=== PATIENT | male | born 1955 | race Caucasian/White ===

== ENCOUNTER 2019-08-22 14:42 | Observation (INO) | payer OTHER ==
[~2019-08-22] VITALS: Ht 175.3 cm; Wt 81.2 kg
[~2019-08-22 14:42] MED LIST: ATOR80 PO; Acetaminophen-1 EAC1 PO; Aspir 8181 MG PO; BREO ELLIPTA 11 EACH IH; CLON1 PO; ERGO400 PO; Flurbiprofen100 MG; Isosorbide Mono30 MG PO; LAMO100 PO; Lithium Carbon150 MG PO; METO25ER PO; Omeprazole20 M1 PO; PENVK500 PO; Vitamin D2000 UNIT PO
[2019-08-22] MEDS ORDERED: Lithium Carbon150 MG PO ×2 (15:03→16:35)
[2019-08-22 15:20] LABS: BASOPHILS ABSOLUTE AUTO 0.07 K/mm3 (0.00-0.23); BASOPHILS PERCENT AUTO 1 % (0-2); EOSINOPHILS ABSOLUTE AUTO 0.29 K/mm3 (0.00-0.68); EOSINOPHILS PERCENT AUTO 3 % (0-6); Hematocrit 42.3 % (37.0-53.0); Hemoglobin 13.5 g/dL (13.5-17.5); IMMATURE GRAN ABSOLUTE AUTO 0.04 K/mm3 (0.00-0.10); IMMATURE GRAN PERCENT AUTO 0 % (0-1); LYMPHOCYTES ABSOLUTE AUTO 2.84 K/mm3 (0.84-5.20); LYMPHOCYTES PERCENT AUTO 31 % (21-46); MONOCYTES ABSOLUTE AUTO 0.57 K/mm3 (0.16-1.47); MONOCYTES PERCENT AUTO 6 % (4-13); Mean Corpuscular HGB 32.4 pg (26.0-34.0); Mean Corpuscular HGB Conc 31.9 g/dL (31.5-36.5); Mean Corpuscular Volume 101 fL (80-100); Mean Platelet Volume 10.2 fL (9.1-12.4); NEUTROPHILS ABSOLUTE AUTO 5.29 K/mm3 (1.96-9.15); NEUTROPHILS PERCENT AUTO 58 % (41-73); Platelet Count 271 K/mm3 (150-400); RDW Coefficient Variation 12.9 % (11.7-14.2); RDW Standard Deviation 48.2 fL (35.1-46.3); Red Blood Cell Count 4.17 M/mm3 (4.30-5.90)
[2019-08-22 15:30] LABS: Troponin I <0.015 ng/mL (0.000-0.040)
[2019-08-22 15:38] LABS: Alanine Aminotransfer (ALT/SGP 47 U/L (12-78); Albumin, Blood 3.5 g/dL (3.4-5.0); Albumin/Globulin Ratio 0.8 (0.8-1.8); Alk Phos 78 U/L (50-136); Anion Gap 7 mmol/L (6-16); Aspartate Aminotrans (AST/SGOT 34 U/L (12-37); Bilirubin, Total 0.3 mg/dL (0.1-1.0); Blood Urea Nitrogen 16 mg/dL (8-24); Bun/Creatinine Ratio 13.6 (12.0-20.0); CO2, Blood 27 mmol/L (21-32); Calcium, Blood 8.8 mg/dL (8.5-10.1); Chloride, Blood 106 mmol/L (98-108); Creatinine, Blood 1.18 mg/dL (0.60-1.20); Globulin, Blood 4.5 g/dL (2.2-4.0); Glomerular Filtration Rate >60 (60-); Glucose, Blood 119 mg/dL (70-99); Potassium, Blood 4.1 mmol/L (3.5-5.5); Sodium, Blood 140 mmol/L (136-145)
[2019-08-22] MEDS ORDERED: CLONAZEPAM1 MG PO (16:39)
[2019-08-22 16:45] LABS: Lithium 0.42 mmol/L (0.60-1.20)
[2019-08-22] MEDS ORDERED: BREO ELLIPTA 11 EACH INH (16:58)
[2019-08-22] MEDS ORDERED: METO25ER PO (16:59)
--- NOTE | 2019-08-22 21:03 | NUR ---
EAN IS A NEW ADMIT FROM THE ED. AXOX 4 AND SBA TRANSFER FROM [facility] TO BED. DENIES CHEST PAIN, N/V, AND SOB. DENIES SYNCOPE EVENTS AT HOSPITAL. TELEMETRY PLACED AND NSR 70. TROPONIN NEGATIVE AND ANOTHER DRAW IN PROCESS. NEED TOXICOLOGY SCREEN. PATIENT ORIENTED TO ROOM AND CALL LIGHT SYSTEM. CARDIAC DIET AND FOOD PROVIDED AND WARM BLANKET. REPORTS SMOKES CANNABIS 2 X WEEK AND SMOKED TODAY BEFORE SYNCOPE EVENT. CALL LIGHT IN REACH. BED IN LOWEST POSITION. WILL CONTINUE TO MONITOR.
--- NOTE | 2019-08-22 21:10 | NUR ---
CARDIOLOGY CONSULT CALLED INTO ANSWERING SERVICE. SERVICE REPORTS DR KUMAR MANAGER AUTOMOTIVE ([facility]).
--- NOTE | 2019-08-22 22:30 | NUR ---
UA COLLECTED FOR TOXICOLOGY SCREEN. SENT TO LAB.
[2019-08-22 22:53] LABS: U Amphetamine Screen Not Detected; U Barbituate Screen Not Detected; U Benzodiazapine Screen Not Detected; U Buprenorphine Screen Not Detected; U Cannabinoids Screen DETECTED; U Cocaine Screen Not Detected; U Methadone Screen Not Detected; U Methamphetamine Screen Not Detected; U Opiates Screen Not Detected; U Oxycodone Screen Not Detected; U Phencyclidine Screen Not Detected; U Propoxyphene Screen Not Detected
--- NOTE | 2019-08-23 04:31 | NUR ---
SHIFT SUMMARY PATIENT HAD NO ACUTE CHANGES OBSERVED THIS SHIFT. AXO X4 AND SBA TO BR. USES URINAL AT BEDSIDE. UA TOXICOLOGY SCREEN ORDER SENT TO LAB. CARDIOLOGY CONSULT CALLED IN. VSS/AFEBRILE. DENIES CHEST PAIN, SYNCOPE EPISODE, AND N/V. PIV REMAINS INTACT. FIELD INSURANCE SALES MANAGER REPORTS NSR 70. TROPONINS NEGATIVE X TWO THIS SHIFT. REPORTS SMOKES CANNABIS TWICE A WEEK AND CEDS 1-1.5 PK/WEEK. HX BIPOLAR, COPD, PTSD, AND REPORTS N/T IN HANDS LAST FEW MONTHS ALTERNATING HANDS. CALL LIGHT IN REACH. BED IN LOWEST POSITION. WILL CONTINUE TO MONITOR UNTIL DAY SHIFT NURSE ASSUMES CARE.
[2019-08-23 08:26] LABS: Free Thyroxine 0.72 ng/dL (0.70-1.60)
[2019-08-23 08:28] LABS: Triiodothyronine, Free 1.81 pg/mL (2.18-3.98)
[2019-08-23] MEDS ORDERED: LEVSOD25 PO (14:07)
--- NOTE | 2019-08-23 14:45 | NUR ---
PATIENT DISCHARGE: PATIENT DISCHARGED TO HOME THIS SHIFT. MEDICATION RECONCILIATION COMPELTED; MED LIST FAXED TO [facility]. DISCHARGE EDUCATION COMPLETED WITH PATIENT AND FAMILY. PATIENT INDEPENDENT IN ROOM; PATIENT DECLINED WHEELCHAIR TO EXIT; PATIENT DEPARTED MEDICAL FLOOR AT 1440. PATIENT DEPARTED [facility] VIA PRIVATE AUTO.
== END 2019-08-23 14:42 | disposition home or self-care (01) ==
LOC: ER 14:42 → MEDS 14:43
PROVIDERS: Emergency Medicine; Internal Medicine; ADMIT Family Medicine
DX: R55 Syncope and collapse (principal); R10.11 Right upper quadrant pain; F43.12 Post-traumatic stress disorder, chronic; F31.9 Bipolar disorder, unspecified; K21.9 Gastro-esophageal reflux disease without esophagitis; J44.9 Chronic obstructive pulmonary disease, unspecified; R00.1 Bradycardia, unspecified; R79.1 Abnormal coagulation profile; E78.00 Pure hypercholesterolemia, unspecified; F41.9 Anxiety disorder, unspecified; F17.210 Nicotine dependence, cigarettes, uncomplicated; I45.10 Unspecified right bundle-branch block; E03.8 Other specified hypothyroidism; Z88.5 Allergy status to narcotic agent; Z79.51 Long term (current) use of inhaled steroids; Z79.82 Long term (current) use of aspirin; Z79.899 Other long term (current) drug therapy
CPT/HCPCS: 36415; 71045; 71275; 76705; 80053; 80178; 82947; 83690; 84439; 84443; 84481; 84484; 85025; 93005; 93010; 93306; 93880; 96360; 99285-25; G0378; J7030; Q9967

== ENCOUNTER → 2019-10-29 | Outpatient (CLI) | payer OTHER ==
[~2019-10-29] MED LIST changes: +BREO ELLIPTA 11 EACH INH; +CLONAZEPAM1 MG PO; +LEVSOD25 PO
== END | disposition home or self-care (01) ==
LOC: PLD 07:23 → LAB SHORT 07:23
DX: D22.5 Melanocytic nevi of trunk (principal)
CPT/HCPCS: 88305

== ENCOUNTER 2021-02-04 15:36 | Emergency (ER) | payer OTHER ==
[~2021-02-04] VITALS: Ht 175.3 cm; Wt 81.7 kg
[2021-02-04 16:33] LABS: BASOPHILS ABSOLUTE AUTO 0.05 K/mm3 (0.00-0.23); BASOPHILS PERCENT AUTO 1 % (0-2); EOSINOPHILS ABSOLUTE AUTO 0.16 K/mm3 (0.00-0.68); EOSINOPHILS PERCENT AUTO 2 % (0-6); Hematocrit 35.2 % (37.0-53.0); Hemoglobin 11.4 g/dL (13.5-17.5); IMMATURE GRAN ABSOLUTE AUTO 0.03 K/mm3 (0.00-0.10); IMMATURE GRAN PERCENT AUTO 0 % (0-1); LYMPHOCYTES ABSOLUTE AUTO 1.62 K/mm3 (0.84-5.20); LYMPHOCYTES PERCENT AUTO 21 % (21-46); MONOCYTES PERCENT AUTO 9 % (4-13); Mean Corpuscular HGB 32.5 pg (26.0-34.0); Mean Corpuscular HGB Conc 32.4 g/dL (31.5-36.5); Mean Corpuscular Volume 100 fL (80-100); Mean Platelet Volume 10.6 fL (9.1-12.4); NEUTROPHILS PERCENT AUTO 67 % (41-73); Platelet Count 262 K/mm3 (150-400); RDW Coefficient Variation 13.6 % (11.7-14.2); RDW Standard Deviation 50.1 fL (35.1-46.3); Red Blood Cell Count 3.51 M/mm3 (4.30-5.90); White Blood Cell Count 7.76 K/mm3 (4.00-11.30)
[2021-02-04 16:49] LABS: Alanine Aminotransfer (ALT/SGP 20 U/L (12-78); Albumin, Blood 3.1 g/dL (3.4-5.0); Albumin/Globulin Ratio 0.8 (0.8-1.8); Alk Phos 78 U/L (50-136); Anion Gap 3 mmol/L (6-16); Aspartate Aminotrans (AST/SGOT 12 U/L (12-37); Bilirubin, Total 0.2 mg/dL (0.1-1.0); Blood Urea Nitrogen 13 mg/dL (8-24); Bun/Creatinine Ratio 14.6 (12.0-20.0); CO2, Blood 26 mmol/L (21-32); Calcium, Blood 8.3 mg/dL (8.5-10.1); Chloride, Blood 109 mmol/L (98-108); Creatinine, Blood 0.89 mg/dL (0.60-1.20); Globulin, Blood 3.9 g/dL (2.2-4.0); Glomerular Filtration Rate >60 (60-); Glucose, Blood 96 mg/dL (70-99); Potassium, Blood 4.3 mmol/L (3.5-5.5); Sodium, Blood 138 mmol/L (136-145); Troponin I <0.015 ng/mL (0.000-0.040)
== END 2021-02-04 19:10 | disposition home or self-care (01) ==
LOC: ER 15:36
PROVIDERS: Emergency Medicine
DX: I95.1 Orthostatic hypotension (principal); E86.0 Dehydration; J44.9 Chronic obstructive pulmonary disease, unspecified; K21.9 Gastro-esophageal reflux disease without esophagitis; F17.210 Nicotine dependence, cigarettes, uncomplicated; Z79.82 Long term (current) use of aspirin; Z79.899 Other long term (current) drug therapy; Z88.5 Allergy status to narcotic agent
CPT/HCPCS: 71046; 73100; 73130; 80053; 84484; 85025; 93005; 93010; 99284-25; J7030

== ENCOUNTER 2022-07-31 09:12 | Day surgery (SDC) | payer OTHER ==
[~2022-07-31] VITALS: Ht 175.3 cm; Wt 79.8 kg
== END 2022-07-31 11:50 | disposition home or self-care (01) ==
LOC: ORSCSDS 09:12
PROVIDERS: Orthopaedic Surgery
PROC: 01N50ZZ Release Median Nerve, Open Approach (ICD-10-PCS; principal; 2022-07-31 10:45)
DX: G56.02 Carpal tunnel syndrome, left upper limb (principal); I10 Essential (primary) hypertension; K21.9 Gastro-esophageal reflux disease without esophagitis; F31.9 Bipolar disorder, unspecified; J44.9 Chronic obstructive pulmonary disease, unspecified; E78.5 Hyperlipidemia, unspecified; F17.210 Nicotine dependence, cigarettes, uncomplicated; Z79.82 Long term (current) use of aspirin; Z79.899 Other long term (current) drug therapy
CPT/HCPCS: J0690; J2704; J7120

== ENCOUNTER 2023-09-09 19:22 | Emergency (ER) | payer OTHER ==
[~2023-09-09] VITALS: Ht 175.3 cm; Wt 83.5 kg
[2023-09-09 19:46] LABS: BASOPHILS ABSOLUTE AUTO 0.07 K/mm3 (0.00-0.23); BASOPHILS PERCENT AUTO 1 % (0-2); EOSINOPHILS ABSOLUTE AUTO 0.33 K/mm3 (0.00-0.68); EOSINOPHILS PERCENT AUTO 5 % (0-6); Hematocrit 39.2 % (37.0-53.0); Hemoglobin 12.8 g/dL (13.5-17.5); IMMATURE GRAN ABSOLUTE AUTO 0.02 K/mm3 (0.00-0.10); IMMATURE GRAN PERCENT AUTO 0 % (0-1); LYMPHOCYTES ABSOLUTE AUTO 2.76 K/mm3 (0.84-5.20); LYMPHOCYTES PERCENT AUTO 39 % (21-46); MONOCYTES ABSOLUTE AUTO 0.72 K/mm3 (0.16-1.47); MONOCYTES PERCENT AUTO 10 % (4-13); Mean Corpuscular HGB 32.3 pg (26.0-34.0); Mean Corpuscular HGB Conc 32.7 g/dL (31.5-36.5); Mean Corpuscular Volume 99 fL (80-100); Mean Platelet Volume 10.1 fL (9.1-12.4); NEUTROPHILS ABSOLUTE AUTO 3.24 K/mm3 (1.96-9.15); NEUTROPHILS PERCENT AUTO 45 % (41-73); Platelet Count 281 K/mm3 (150-400); RDW Coefficient Variation 13.4 % (11.7-14.2); RDW Standard Deviation 48.7 fL (35.1-46.3); Red Blood Cell Count 3.96 M/mm3 (4.30-5.90); White Blood Cell Count 7.14 K/mm3 (4.00-11.30)
[2023-09-09 20:15] LABS: Albumin, Blood 3.3 g/dL (3.4-5.0); Albumin/Globulin Ratio 0.8 (0.8-1.8); Bilirubin, Total 0.2 mg/dL (0.1-1.0); Bun/Creatinine Ratio 11.8 (12.0-20.0); Calcium, Blood 8.7 mg/dL (8.5-10.1); Creatinine, Blood 1.1 mg/dL (0.60-1.20); Globulin, Blood 4.4 g/dL (2.2-4.0); Potassium, Blood 4.3 mmol/L (3.5-5.5); Total Protein, Blood 7.7 g/dL (6.4-8.2)
[2023-09-10 01:10] VITALS: BP 115/84
[2023-09-10] MEDS ORDERED: ALMACONE SUSPE355 ML PO (01:51)
== END 2023-09-10 02:07 | disposition home or self-care (01) ==
LOC: ER 19:22
PROVIDERS: Emergency Medicine
DX: R10.12 Left upper quadrant pain (principal); J44.9 Chronic obstructive pulmonary disease, unspecified; F17.210 Nicotine dependence, cigarettes, uncomplicated; Z88.5 Allergy status to narcotic agent; Z79.899 Other long term (current) drug therapy; Z79.82 Long term (current) use of aspirin
CPT/HCPCS: 74177; 76700; 80053; 83690; 85025; 96361; 96374; 99284-25; J1610; J1885; J2405; J7030; Q9967

== ENCOUNTER 2025-08-18 15:26 | Emergency (ER) | payer OTHER ==
[~2025-08-18] VITALS: Ht 175.3 cm; Wt 84.8 kg
[~2025-08-18 15:26] MED LIST changes: +ALMACONE SUSPE355 ML PO
[2025-08-18 15:43] VITALS: BP 183/127
[2025-08-18] MEDS ORDERED: HYDROcodone 10-APAP 325 TAB PO ONE (16:20)
== END 2025-08-18 17:10 | disposition home or self-care (01) ==
LOC: ER 15:26
DX: S92.512A Displaced fracture of proximal phalanx of left lesser toe(s), initial encounter for closed fracture (principal); Z88.5 Allergy status to narcotic agent; F43.10 Post-traumatic stress disorder, unspecified; F17.210 Nicotine dependence, cigarettes, uncomplicated; W22.8XXA Striking against or struck by other objects, initial encounter
CPT/HCPCS: 28515; 73620; 99283-25; A9270